=== PATIENT | female | born 1990 | race Two or more races ===

== ENCOUNTER → 2018-02-17 | Emergency (ER) | payer OTHER ==
[~2018-02-17] VITALS: Ht 165.1 cm; Wt 62.6 kg
[~2018-02-17] MED LIST: PRENATABS FA T1 EACH
== END | disposition left against medical advice (07) ==
LOC: ER 19:21 → EMR PED 19:21 → ER 19:26
DX: Z53.20 Procedure and treatment not carried out because of patient's decision for unspecified reasons (principal)

== ENCOUNTER 2018-09-11 07:45 | Inpatient (IN) | payer OTHER ==
[~2018-09-11] VITALS: Ht 167.6 cm; Wt 80.7 kg
[2018-09-20] MEDS ORDERED: OBSTETRIX DHA1 EACH PO (09:41)
== END 2018-09-20 10:30 | disposition home or self-care (01) | DRG 807 ==
LOC: OB/GYN 09-18 04:38 → LDR 09-18 04:38 → OB/GYN 09-18 14:25 → SURH 09-20 07:45 → OB/GYN 09-20 07:45
PROVIDERS: ADMIT Obstetrics & Gynecology
PROC: 10E0XZZ Delivery of Products of Conception, External Approach (ICD-10-PCS; principal; 2018-09-18)
PROC: 0HQ9XZZ Repair Perineum Skin, External Approach (ICD-10-PCS; 2018-09-18)
PROC: 10907ZC Drainage of Amniotic Fluid, Therapeutic from Products of Conception, Via Natural or Artificial Opening (ICD-10-PCS; 2018-09-18)
PROC: 3E0P7VZ Introduction of Hormone into Female Reproductive, Via Natural or Artificial Opening (ICD-10-PCS; 2018-09-18)
PROC: 3E033VJ Introduction of Other Hormone into Peripheral Vein, Percutaneous Approach (ICD-10-PCS; 2018-09-18)
PROC: 4A1HXCZ Monitoring of Products of Conception, Cardiac Rate, External Approach (ICD-10-PCS; 2018-09-18)
DX: O70.0 First degree perineal laceration during delivery (principal); Z37.0 Single live birth; Z3A.40 40 weeks gestation of pregnancy